=== PATIENT | male | born 1945 | race Two or more races ===

== ENCOUNTER 2020-06-14 17:50 | Inpatient (IN) | payer MEDICARE ==
[~2020-06-14] VITALS: Ht 162.6 cm; Wt 79.4 kg
[2020-06-14] MEDS ORDERED: DEXAMETHASONE 10 MG/ML VIAL IV ONE (18:30)
[2020-06-14 18:57] LABS: BASOPHILS % 0.6 % (0.0-2.0); EOSINOPHILS % 1.7 % (0.0-5.0); HEMATOCRIT. 39.4 % (42.0-52.0); HEMOGLOBIN. 13.5 g/dL (14.0-18.0); LYMPHOCYTES % 16.9 % (20.0-50.0); MEAN CORPUSCULAR HEMOGLOBIN 29.2 pg (28.0-32.0); MEAN CORPUSCULAR VOLUME 85.3 fL (80.0-94.0); MEAN PLATELET VOLUME 7.7 fl (7.4-10.4); MONOCYTES % 11.2 % (2.0-8.0); NEUTROPHILS % 69.6 % (40.0-76.0); PLATELET 326 x1000/uL (130-400); RED BLOOD CELL COUNT 4.62 mill/uL (4.7-6.1); RED CELL DISTRIBUTION WIDTH 13.3 % (11.6-14.6)
[2020-06-14 19:04] LABS: CHLORIDE 103 mEq/L (98-107)
[2020-06-14 19:12] LABS: CREATINE KINASE 183 IU/L (39-308)
[2020-06-14] MEDS ORDERED: DOXYCYCLINE HYCLATE 100MG CAPSULE PO NR (19:30)
[2020-06-14] MEDS ORDERED: CEFTRIAXONE 1 G PREMIX 50 ML IV NR (19:30)
[2020-06-14] MEDS ORDERED: MAGNESIUM/ALUMINUM HYDROXIDE/SIMETHICONE 30ML UDC PO PRN (22:30)
[2020-06-14] MEDS ORDERED: DOCUSATE SODIUM 100MG CAPSULE PO PRN (22:30)
[2020-06-14] MEDS ORDERED: ONDANSETRON HCL 4MG/2ML INJ IV PRN (22:30)
[2020-06-14] MEDS ORDERED: CLONIDINE 0.1MG TABLET PO PRN (22:30)
[2020-06-14] MEDS ORDERED: AZITHROMYCIN 500 MG in DEXT 5% WATER 250 ML IV NR (23:00)
[2020-06-15 04:13] LABS: BASOPHILS % 0.3 % (0.0-2.0); HEMATOCRIT. 39.2 % (42.0-52.0); HEMOGLOBIN. 13.7 g/dL (14.0-18.0); LYMPHOCYTES % 19.3 % (20.0-50.0); MEAN CORPUSCULAR HEMOGLOBIN 29.6 pg (28.0-32.0); MEAN CORPUSCULAR VOLUME 84.8 fL (80.0-94.0); MEAN PLATELET VOLUME 7.3 fl (7.4-10.4); NEUTROPHILS % 75.4 % (40.0-76.0); PLATELET 343 x1000/uL (130-400); RED BLOOD CELL COUNT 4.62 mill/uL (4.7-6.1); RED CELL DISTRIBUTION WIDTH 13.5 % (11.6-14.6)
[2020-06-15 04:19] LABS: CHLORIDE 108 mEq/L (98-107)
[2020-06-15 11:00] VITALS: BP 129/72
[2020-06-15 12:00] VITALS: BP 129/72
[2020-06-15 16:00] VITALS: BP 148/73
[2020-06-15] MEDS ORDERED: ALBUTEROL 6.7GM HFA INHALER ORI PRN (16:30)
[2020-06-15] MEDS: ENOXAPARIN 40MG/0.4ML SYR SUBCUT SCH (16:32)
[2020-06-15 20:00] VITALS: BP 126/70
[2020-06-15] MEDS ORDERED: CEFTRIAXONE 1,000 MG in DEXTROSE 5% WATER 50 ML IV SCH (20:00)
[2020-06-15] MEDS: AZITHROMYCIN 250 MG in DEXT 5% WATER 250 ML IV SCH (20:51)
[2020-06-15] MEDS ORDERED: AZITHROMYCIN 250 MG in DEXT 5% WATER 250 ML IV SCH (23:00)
[2020-06-16] VITALS: BP 111/57
[2020-06-16 04:00] VITALS: BP 100/60
[2020-06-16 08:00] VITALS: BP 123/66
[2020-06-16 12:00] VITALS: BP 115/66
[2020-06-16 16:00] VITALS: BP 106/66
[2020-06-16] MEDS: ENOXAPARIN 40MG/0.4ML SYR SUBCUT SCH (16:38)
[2020-06-16] MEDS: THROAT LOZENGES-BENZOCAINE/MENTH/CETYLPYRD CL LOZENGES MM PRN ×2 (16:45→21:53)
[2020-06-16 20:00] VITALS: BP 117/75
[2020-06-16] MEDS: AZITHROMYCIN 250 MG in DEXT 5% WATER 250 ML IV SCH (21:22)
[2020-06-16] MEDS: ACETAMINOPHEN 325MG TABLET PO PRN (21:53)
[2020-06-16] MEDS: CEFTRIAXONE 1,000 MG in DEXTROSE 5% WATER 50 ML IV SCH (23:13)
[2020-06-17] VITALS: BP 105/67
[2020-06-17 04:00] VITALS: BP 103/64
[2020-06-17 08:00] VITALS: BP 113/70
[2020-06-17] MEDS: ACETAMINOPHEN 325MG TABLET PO PRN (10:47)
[2020-06-17 12:00] VITALS: BP 103/65
[2020-06-17] MEDS: DEXAMETHASONE 10 MG/ML VIAL IV SCH (15:32)
[2020-06-17 16:00] VITALS: BP 104/54
[2020-06-17] MEDS: ENOXAPARIN 40MG/0.4ML SYR SUBCUT SCH (17:29)
[2020-06-17 20:00] VITALS: BP 128/74
[2020-06-17] MEDS: AZITHROMYCIN 250 MG in DEXT 5% WATER 250 ML IV SCH (22:09)
[2020-06-17] MEDS: THROAT LOZENGES-BENZOCAINE/MENTH/CETYLPYRD CL LOZENGES MM PRN (22:34)
[2020-06-18] VITALS: BP 120/75
[2020-06-18] MEDS: CEFTRIAXONE 1,000 MG in DEXTROSE 5% WATER 50 ML IV SCH ×2 (00:20→22:20)
[2020-06-18] MEDS: DEXAMETHASONE 10 MG/ML VIAL IV SCH ×3 (00:20→16:26)
[2020-06-18 04:00] VITALS: BP 121/66
[2020-06-18 08:00] VITALS: BP 107/71
[2020-06-18 12:00] VITALS: BP 121/68
[2020-06-18] MEDS: THROAT LOZENGES-BENZOCAINE/MENTH/CETYLPYRD CL LOZENGES MM PRN ×2 (13:41→22:20)
[2020-06-18 16:00] VITALS: BP 128/69
[2020-06-18] MEDS: ENOXAPARIN 40MG/0.4ML SYR SUBCUT SCH (16:26)
[2020-06-18 20:00] VITALS: BP 116/66
[2020-06-18] MEDS: AZITHROMYCIN 250 MG in DEXT 5% WATER 250 ML IV SCH (20:18)
[2020-06-18] MEDS: ACETAMINOPHEN 325MG TABLET PO PRN (23:24)
[2020-06-19] VITALS (7 sets, daily range): BP systolic 99–116; BP diastolic 48–68
[2020-06-19] MEDS: THROAT LOZENGES-BENZOCAINE/MENTH/CETYLPYRD CL LOZENGES MM PRN (11:21)
[2020-06-19] MEDS: ENOXAPARIN 40MG/0.4ML SYR SUBCUT SCH (17:48)
[2020-06-19] MEDS: ACETAMINOPHEN 325MG TABLET PO PRN (20:46)
[2020-06-20] VITALS: BP 116/71
[2020-06-20 04:00] VITALS: BP 101/61
[2020-06-20 08:00] VITALS: BP 113/69
[2020-06-20] MEDS: ACETAMINOPHEN 325MG TABLET PO PRN ×2 (11:02→20:14)
[2020-06-20 12:00] VITALS: BP 117/72
[2020-06-20 16:00] VITALS: BP 114/71
[2020-06-20] MEDS: THROAT LOZENGES-BENZOCAINE/MENTH/CETYLPYRD CL LOZENGES MM PRN (17:57)
[2020-06-20] MEDS: ENOXAPARIN 40MG/0.4ML SYR SUBCUT SCH (17:58)
[2020-06-20 20:00] VITALS: BP 117/69
[2020-06-20] MEDS: CHOLECALCIFEROL (D3) 1000 UNIT TABLET PO SCH (20:14)
[2020-06-21] VITALS: BP 116/89
[2020-06-21 04:00] VITALS: BP 108/66
[2020-06-21] MEDS: CHOLECALCIFEROL (D3) 1000 UNIT TABLET PO SCH (09:47)
[2020-06-21] MEDS: THROAT LOZENGES-BENZOCAINE/MENTH/CETYLPYRD CL LOZENGES MM PRN (14:56)
[2020-06-21] MEDS: ACETAMINOPHEN 325MG TABLET PO PRN ×2 (14:56→23:24)
[2020-06-21] MEDS: ENOXAPARIN 40MG/0.4ML SYR SUBCUT SCH (16:42)
[2020-06-21 20:00] VITALS: BP 111/72
[2020-06-22] VITALS: BP 109/70
[2020-06-22 04:00] VITALS: BP 100/61
[2020-06-22] MEDS: CHOLECALCIFEROL (D3) 1000 UNIT TABLET PO SCH (09:09)
[2020-06-22] MEDS: THROAT LOZENGES-BENZOCAINE/MENTH/CETYLPYRD CL LOZENGES MM PRN ×3 (09:24→21:08)
[2020-06-22 12:00] VITALS: BP 96/61
[2020-06-22] MEDS: ACETAMINOPHEN 325MG TABLET PO PRN ×2 (14:19→21:08)
[2020-06-22 16:00] VITALS: BP 100/60
[2020-06-22] MEDS: ENOXAPARIN 40MG/0.4ML SYR SUBCUT SCH (16:49)
[2020-06-22 20:00] VITALS: BP 105/60
[2020-06-23] VITALS: BP 110/68
[2020-06-23 04:00] VITALS: BP 100/54
[2020-06-23 08:00] VITALS: BP 96/63
[2020-06-23] MEDS: CHOLECALCIFEROL (D3) 1000 UNIT TABLET PO SCH (08:37)
[2020-06-23 12:00] VITALS: BP 102/60
[2020-06-23] MEDS: THROAT LOZENGES-BENZOCAINE/MENTH/CETYLPYRD CL LOZENGES MM PRN (14:46)
[2020-06-23 16:00] VITALS: BP 106/64
[2020-06-23] MEDS: ENOXAPARIN 40MG/0.4ML SYR SUBCUT SCH (16:41)
[2020-06-23] MEDS ORDERED: DEXAMETHASONE 4MG/ML 1ML VIAL IV SCH (17:00)
[2020-06-23 17:32] VITALS: BP 106/64
== END 2020-06-23 18:00 | disposition home health service (06) | DRG 871 ==
LOC: ER 17:50 → MICUSO 22:13 → EDBEDREQ 22:28 → EDBEDREQSVC 22:28 → 7WST 06-15 09:57
PROVIDERS: ADMIT Hospitalist; ATTEND Hospitalist
DX: A41.89 Other specified sepsis (principal); U07.1 COVID-19; J12.89 Other viral pneumonia; J96.01 Acute respiratory failure with hypoxia; E43 Unspecified severe protein-calorie malnutrition; R00.1 Bradycardia, unspecified; I10 Essential (primary) hypertension; Z90.49 Acquired absence of other specified parts of digestive tract; Z82.49 Family history of ischemic heart disease and other diseases of the circulatory system; Z68.30 Body mass index [BMI] 30.0-30.9, adult
CPT/HCPCS: 36415; 71045; 80053; 82550; 82728; 83605; 83615; 83880; 84145; 84484; 85025; 86140; 87635; 87804; 93005; 93970; 99285; J0456; J0696; J1100; J1650; J7060